=== PATIENT | female | born 1990 ===

== ENCOUNTER 2020-10-25 14:19 | Inpatient (IN) | payer OTHER ==
[~2020-10-25] VITALS: Ht 180.3 cm; Wt 115.7 kg
[2020-10-28] MEDS ORDERED: PRENATAL + DHA1 EAC1 PO (08:37)
[2020-10-28] MEDS ORDERED: ST. JOSEPH ASPI81 M2 (10:57)
== END 2020-10-28 15:14 | disposition home or self-care (01) | DRG 832 ==
LOC: LDR 14:19 → OB/GYN 10-27 13:55
PROVIDERS: ADMIT Obstetrics & Gynecology; ATTEND Obstetrics & Gynecology
PROC: 4A1HXFZ Monitoring of Products of Conception, Cardiac Rhythm, External Approach (ICD-10-PCS; principal; 2020-10-25)
PROC: BW40ZZZ Ultrasonography of Abdomen (ICD-10-PCS; 2020-10-27)
DX: O99.612 Diseases of the digestive system complicating pregnancy, second trimester (principal); A02.0 Salmonella enteritis; K52.89 Other specified noninfective gastroenteritis and colitis; O99.012 Anemia complicating pregnancy, second trimester; D64.9 Anemia, unspecified; Z3A.23 23 weeks gestation of pregnancy; Z20.822 Contact with and (suspected) exposure to COVID-19

== ENCOUNTER 2021-02-04 10:48 | Inpatient (IN) | payer OTHER ==
[~2021-02-04] VITALS: Ht 180.3 cm; Wt 3.6 kg
[~2021-02-04 10:48] MED LIST: PRENATAL + DHA1 EAC1 PO; ST. JOSEPH ASPI81 M2
[2021-02-04] MEDS ORDERED: IRON PO (11:38)
== END 2021-02-07 13:52 | disposition home or self-care (01) | DRG 787 ==
LOC: LDR 10:48 → SURG-SUITE 10:48 → O/R 10:48 → SURG-SUITE 15:49
PROVIDERS: ADMIT Obstetrics & Gynecology; ATTEND Obstetrics & Gynecology
PROC: 4A1HXFZ Monitoring of Products of Conception, Cardiac Rhythm, External Approach (ICD-10-PCS; 2021-02-04)
PROC: 10D00Z1 Extraction of Products of Conception, Low, Open Approach (ICD-10-PCS; principal; 2021-02-04 12:00)
DX: O34.211 Maternal care for low transverse scar from previous cesarean delivery (principal); O41.03X0 Oligohydramnios, third trimester, not applicable or unspecified; Z3A.38 38 weeks gestation of pregnancy; Z37.0 Single live birth; Z20.822 Contact with and (suspected) exposure to COVID-19